=== PATIENT | female | born 1940 | race Two or more races ===

== ENCOUNTER 2021-07-31 14:00 | Outpatient (REF) | payer MEDICARE, MEDICAID, SELFPAY ==
[2021-07-31 14:10] LABS: Appearance Urine CLOUDY; Color Urine YELLOW; Glucose Urine UA NEG (NEG); Leukocyte Esterase Urine 2+ (NEG); Nitrite Urine NEG (NEG); UACC Culture Trigger YES; Urine Blood 2+ (NEG); Urine Ketones NEG (NEG); Urine Protein TRACE MG/DL (NEG-TRACE)
[2021-07-31 14:30] LABS: Bacteria Urine 3+ /LPF; Squamous Epithelial Cell Urine 2+ /LPF; WBC Clumps Urine NOTED
[2021-07-31 14:38] LABS: Creatinine Urine 94.76 mg/dL; Microalbum/Creatinine Ratio Ur 142.4 ug/mg cr
== END 2021-07-31 14:01 | disposition home or self-care (01) ==
LOC: HO.LNP 14:00
PROVIDERS: Visit Provider Internal Medicine
DX: E11.9 Type 2 diabetes mellitus without complications (principal); I10 Essential (primary) hypertension
CPT/HCPCS: 81001; 82043; 87086; 87088; 87186

== ENCOUNTER 2021-08-25 12:25 | Outpatient (REF) | payer MEDICARE, MEDICAID, SELFPAY ==
[2021-08-25 12:43] LABS: Appearance Urine CLOUDY; Color Urine YELLOW; Glucose Urine UA NEG (NEG); Leukocyte Esterase Urine 3+ (NEG); Nitrite Urine POS (NEG); PH 6.5 (5.0-8.0); Specific Gravity - Urine >= 1.030 (1.005-1.025); UACC Culture Trigger YES; Urine Blood NEG (NEG); Urine Ketones NEG (NEG); Urine Protein TRACE MG/DL (NEG-TRACE)
[2021-08-25 13:04] LABS: Bacteria Urine 3+ /LPF; RBC Urine 0-2 /HPF (0); Squamous Epithelial Cell Urine 2+ /LPF
== END 2021-08-25 12:26 | disposition home or self-care (01) ==
LOC: HO.LNP 12:25
PROVIDERS: Visit Provider Internal Medicine
DX: R30.0 Dysuria (principal)
CPT/HCPCS: 81001; 87086

== ENCOUNTER 2022-12-13 02:39 | Emergency (ER) | payer MEDICARE, MEDICAID, SELFPAY ==
[2022-12-13] VITALS (10 sets, daily range): BP systolic 119–166; BP diastolic 65–133; PULSE 96–139; RESP 24–36; TEMP 36.9; O2SAT 74–95; BMI 54.7
--- NOTE | ~2022-12-13 | CT_ITS ---
EXAMINATION: CT ANGIOGRAM OF THE CHEST WITH AND WITHOUT CONTRAST (CT PULMONARY ANGIOGRAM FOR PE) CLINICAL INFORMATION: Reason for Exam SOB and elevated D-dimer. COMPARISON: None available. TECHNIQUE: Prior to contrast administration, noncontrast localization images were obtained. Subsequently, multidetector volumetric imaging was performed from the thoracic inlet to below the diaphragms following the administration of 85 mL Omnipaque 350 intravenous contrast. No contrast reaction reported Sagittal, coronal, and MIP oblique sagittal reformatted images were obtained on the CT workstation, uploaded to PACS, and reviewed. This CT examination was performed using dose optimization techniques as appropriate, variously including the following: *Automated exposure control *Adjustment of mA and/or kV according to patient size (this includes techniques or standardized protocols for targeted exams where dose is matched to indication/reason for exam; i.e. extremities or head) *Use of iterative reconstruction technique Total exam dose-length product 477 mGy-cm FINDINGS: QUALITY OF STUDY/CONTRAST BOLUS: Suboptimal. PULMONARY ARTERIES: Dilated main pulmonary artery suggesting pulmonary artery hypertension. No central pulmonary embolus is seen. However, there is significant respiratory motion artifact which obscures portions of the segmental and subsegmental vessels bilaterally, and therefore emboli at these levels cannot be reliably excluded. THORACIC AORTA: No aneurysm. Scattered atherosclerotic calcifications. LUNG: Limited detailed evaluation due to respiratory motion artifact. There are moderately extensive bilateral regions of groundglass opacity and consolidation, along with some interlobular septal thickening favoring at least a component of edema. PLEURA: No pneumothorax. Small pleural effusions. MEDIASTINUM: The visualized thyroid gland is unremarkable. No discrete mediastinal lymphadenopathy is seen. There is cardiomegaly without pericardial effusion. CORONARY ARTERY CALCIFICATION: Present CHEST WALL/AXILLA: No axillary or internal mammary lymphadenopathy. OSSEOUS STRUCTURES: Degenerative changes are noted in the spine. UPPER ABDOMEN: Mild reflux of contrast into the hepatic veins which can be seen with elevated right heart pressures. CT/CT angio chest PE protocol IMPRESSION: 1. No central pulmonary embolus identified. However, there is significant respiratory motion artifact which obscures portions of the segmental and subsegmental vessels bilaterally, and therefore emboli at these levels cannot be reliably excluded. 2. Dilated main pulmonary artery suggesting pulmonary artery hypertension. 3. Moderately extensive bilateral pulmonary opacities favoring at least a component of edema. In the proper clinical setting, superimposed infectious etiology could also be considered. 4. Small pleural effusions. 5. Cardiomegaly. VTE: negative.
--- NOTE | 2022-12-13 03:06 | ECG_ITS ---
Test Reason : sob Blood Pressure : / mmHG Vent. Rate : 123 BPM Atrial Rate : 110 BPM P-R Int : 000 ms QRS Dur : 162 ms QT Int : 384 ms P-R-T Axes : 000 -47 131 degrees QTc Int : 549 ms Poor data quality Undetermined rhythm - likely Afib Left axis deviation Left bundle branch block Abnormal ECG When compared with ECG of 08-SEP-2007 03:12, Current undetermined rhythm precludes rhythm comparison, needs review Left bundle branch block is now Present Referred By: Generic ED Physician Electronically Signed By:Reynaldo Rodriguez
--- NOTE | 2022-12-13 03:15 | ED.SOB ---
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 PMH is significant for hypothyroidism, anxiety, hypertension, dementia, depression, GERD, DM type 2. Related Data Home Medications Medication Instructions Recorded Confirmed acetaminophen 325 mg tablet 650 mg PO Q6-8H PRN pain 06/17/20 10/20/20 cyanocobalamin (vitamin B-12) mcg IM 06/17/20 10/20/20 1,000 mcg/mL injection solution quetiapine 25 mg tablet 25 mg PO BEDTIME 06/17/20 10/20/20 amlodipine 10 mg tablet 10 mg PO DAILY 12/13/22 12/13/22 aspirin 81 mg tablet,delayed 81 mg PO DAILY 12/13/22 12/13/22 release cholecalciferol (vitamin D3) 25 25 mcg PO DAILY 12/13/22 12/13/22 mcg (1,000 unit) tablet cyanocobalamin (vitamin B-12) 1,000 mcg PO DAILY 12/13/22 12/13/22 1,000 mcg tablet (Vitamin B-12) ferrous sulfate 325 mg (65 mg 325 mg PO DAILY 12/13/22 12/13/22 iron) tablet (FeroSul) fluoxetine 40 mg capsule 40 mg PO DAILY 12/13/22 12/13/22 hydrochlorothiazide 25 mg tablet 25 mg PO QAM 12/13/22 12/13/22 levothyroxine 100 mcg tablet 100 mcg PO QAM 12/13/22 12/13/22 lisinopril 40 mg tablet 40 mg PO DAILY 12/13/22 12/13/22 lorazepam 1 mg tablet 1 mg PO BID PRN anxiety 12/13/22 12/13/22 omeprazole 20 mg capsule,delayed 20 mg PO DAILY 12/13/22 12/13/22 release simvastatin 20 mg tablet 20 mg PO BEDTIME 12/13/22 12/13/22 tramadol 50 mg tablet 50 mg PO TID PRN pain 12/13/22 12/13/22 Previous Rx's Medication Instructions Recorded miscellaneous medical supply See Rx Instructions miscellaneous 04/23/20 .COMPLEX #1 ea miscellaneous medical supply 1 ea miscellaneous .COMPLEX #1 ea 09/18/20 zinc oxide-white petrolatum 1 appl topical TID 30 days #71 09/18/20 topical ointment grams MANUAL WHEELCHAIR #1 ea 11/12/20 MOTORIZED SCOOTER #1 ea 11/21/20 miscellaneous medical supply 1 ea miscellaneous .COMPLEX #1 ea 03/26/21 metformin 500 mg tablet 500 mg PO BID #180 tabs 11/10/21 aspirin 81 mg tablet,delayed 81 mg PO DAILY 90 days #90 tabs 01/18/22 release cholecalciferol (vitamin D3) 25 25 mcg PO DAILY 90 days #90 tabs 01/18/22 mcg (1,000 unit) tablet (Vitamin D3) ferrous sulfate 325 mg (65 mg 325 mg PO DAILY 90 days #90 tabs 01/18/22 iron) tablet levothyroxine 100 mcg tablet 100 mcg PO QAM 90 days #90 tabs 01/18/22 miscellaneous medical supply 5 ea miscellaneous .COMPLEX 30 08/02/22 days #150 ea miscellaneous medical supply See Rx Instructions miscellaneous 08/02/22 .COMPLEX #1 ea miscellaneous medical supply See Rx Instructions miscellaneous 08/02/22 .COMPLEX #1 ea miscellaneous medical supply See Rx Instructions miscellaneous 08/02/22 .COMPLEX #150 ea XL gloves #3 ea 08/09/22 bed pads #2 ea 08/09/22 personal wipes #3 ea 08/09/22 cyanocobalamin (vitamin B-12) 1,000 mcg PO DAILY #30 tabs 10/06/22 1,000 mcg tablet lisinopril 40 mg tablet 40 mg PO DAILY 90 days #90 tabs 10/06/22 fluoxetine 40 mg capsule 40 mg PO DAILY 90 days #90 caps 10/11/22 omeprazole 20 mg capsule,delayed 20 mg PO DAILY #90 caps 10/31/22 release amlodipine 10 mg tablet 10 mg PO DAILY #90 tabs 11/05/22 hydrochlorothiazide 25 mg tablet 25 mg PO QAM #90 tabs 11/05/22 simvastatin 20 mg tablet 20 mg PO BEDTIME #90 tabs 11/10/22 lorazepam 1 mg tablet 1 mg PO BID PRN anxiety 30 days 11/17/22 #60 tabs tramadol 50 mg tablet 50 mg PO TID PRN pain 30 days #90 12/07/22 tabs Allergies Allergy/AdvReac Type Severity Reaction Status Date / Time No Known Allergies Allergy Verified 12/29/21 11:13 [No Known Allergies*] Review of Systems Review of Systems: All other systems are reviewed and are negative Constitutional: Reports as per HPI and Reports no additional constitutional complaints Eyes: Reports as per HPI and Reports no additional eye complaints Reports system reviewed and no additional complaints, except as documented Cardiovascular: Reports as per HPI and Reports no additional cardiovascular complaints Respiratory: Reports as per HPI and Reports no additional respiratory complaints Gastrointestinal: Reports as per HPI and Reports no additional gastrointestinal complaints Genitourinary: Reports no additional female genitourinary complaints Musculoskeletal: Reports no additional musculoskeletal complaints Skin/Breast: Reports system reviewed and no additional complaints, except as docu Psychiatric: Reports no additional psychiatric complaints Endocrine: Reports no additional endocrine complaints Hematologic/Lymphatic: Reports no additional hematologic/lymphatic complaints Allergic/Immunologic: Reports no additional allergic/immunologic complaints Reports system reviewed and no additional complaints, except as documented and Reports Abnormal speech present FORMERLY [facility], [facility]–1983 Past Medical History Medical History Acquired hypothyroidism Anxiety Benign essential hypertension Dementia Depression GERD without esophagitis Iron deficiency anemia Obesity (BMI 30-39.9) Osteoarthritis Pure hypercholesterolemia Type 2 diabetes mellitus without complications Urinary incontinence Vitamin B12 deficiency Vitamin D deficiency Surgical History No pertinent past surgical history Family History Family History Father No problems noted. Mother No problems noted. Social History Social History Housing: House Alcohol intake: never Patient Tobacco Use Status: Former Tobacco user Years Smoked: quit at 39 year old per grand child. Smoked in Last 30 Days: Yes Advance Directives: No Advance Directives Information Provided: No Current occupational status: disabled Cognitive needs: Yes Hearing needs: Yes Vision needs: No Physical Exam Vital Signs: Vital Signs: Last Vital Signs Pulse 105 H 12/13/22 05:27 Resp 30 H 12/13/22 07:06 BP 119/65 12/13/22 05:27 Pulse Ox 93 12/13/22 05:27 O2 Del Method BiPAP 12/13/22 05:27 O2 Flow Rate 4 12/13/22 02:55 Oxygen Flow Rate 4 12/13/22 03:28 BMI result Body Mass Index 54.7 Vital signs have been reviewed as appeared to be correct. Blood pressure normal. Heart rate elevated . Respiration rate normal. Temperature normal. Oxygen saturation low. Appearance: Diaphoretic, in acute respiratory distress. Head: Normal external exam. Normocephalic. Atraumatic. No Camacho signs noted. No raccoon eyes noted Eyes: PERRLA. EOMI. Conjunctiva and sclera normal. Eyelids normal. ENT: TM's Normal. Pharynx normal. Uvula midline. Moist mucous membranes. No trismus noted. No drooling noted. No muffled voice noted. Neck: Normal inspection. Neck supple. FROM. No adenopathy. Thyroid Normal. No meningeal signs. No neck mass noted. CVS: Normal heart rate and rhythm. Heart sound normal. No murmurs noted. Pulses normal throughout. Respiratory: No respiratory distress. Painless inspiration. Breath sounds normal. No wheezes/rales/rhonchi noted. Chest nontender. No accessory muscle usage noted or decreased air movement noted. Abdomen: Soft and nontender. Bowel sounds normal in all 4 quadrants. No distention noted. No organomegaly noted. No visible injury noted. Back: No CVA tenderness. Full range of motion noted. Skin: Skin warm and dry. Normal skin color. Normal skin turgor. No rashes/lesions/lacerations noted. Extremities: No lower extremity edema. Extremities exhibit normal range of motion. Extremities nontender. Neuro: Cranial nerve exam: II-XII are grossly intact No motor deficit. No sensory deficit. Reflexes normal. Course Course Course Narrative: 7:34 82-year-old female came in for right leg pain patient found to be in congestive heart failure, patient received Lasix and nitro and patient was placed on BiPAP with significant improvement while in the emergency department, we will wean off the BiPAP machine and admit to the floor. Lactic acidosis due to congestive heart failure, no evidence of severe infection or septic shock. The plan was discussed with Clara. Reevaluation(s) Time: 07:34 Medications Administered Discontinued Medications Generic Name Dose Route Start Last Admin Trade Name Freq PRN Reason Stop Dose Admin Furosemide 40 mg 12/13/22 03:13 12/13/22 03:24 Furosemide 40 Mg/4 Ml Vial IVPUSH 12/13/22 03:14 40 mg STAT STA Administration Protocol Furosemide 40 mg 12/13/22 05:53 12/13/22 05:57 Furosemide 40 Mg/4 Ml Vial IVPUSH 12/13/22 05:54 40 mg STAT STA Administration Protocol Iohexol 85 ml 12/13/22 04:27 12/13/22 04:28 Iohexol 350 Mg/Ml 100 Ml Infus..Btl IV 12/13/22 04:28 85 ml ONCE ONE Administration Nitroglycerin 1 inch 12/13/22 03:13 12/13/22 03:24 Nitroglycerin 2 % Oint 1 Gm Packet TRANSDERMA 12/13/22 03:14 1 inch ONCE ONE Administration Medical Decision Making Differential Diagnosis Differential Diagnoses: The differential diagnosis associated with the presentation includes (CHF, pneumonia, pneumothorax, pulmonary embolism, severe electrolyte abnormalities, severe anemia.) Admission/Observation Consideration of admission/observation: Escalation of care including admission/observation considered Consult Healthcare Provider Management of the patient was discussed with: Hospitalist (Dr. Gutierrez) Lab Data MDM Lab Attestation statement: I reviewed the patient's lab results. 12/13/22 03:12 12/13/22 03:12 Labs: Lab Results 12/13/22 12/13/22 12/13/22 Range/Units 03:12 03:12 03:12 WBC 12.4 H (4.8-10.8) X10*3/uL RBC 4.49 (4.20-5.50) X10*6/uL Hgb 12.5 (12.0-16.0) g/dl Hct 40.7 (37.0-47.0) % MCV 90.6 (80.0-98.0) fL MCH 27.8 (27.0-33.0) pg MCHC 30.7 L (31.0-35.0) g/dl RDW 13.2 (11.0-16.0) % Plt Count 344 (160-400) X10*3/uL MPV 9.6 (9.4-12.3) fL Immature Gran % (Auto) 1.3 H (0.0-0.4) % Neut % (Auto) 77.5 H (45-73) % Lymph % (Auto) 17.4 L (20-40) % [place] % (Auto) 3.4 (2-11) % Eos % (Auto) 0.2 (0-4) % Baso % (Auto) 0.2 (0-2) % Lymph # (Auto) 2.2 (1.2-4.9) X10*3/uL [place] # (Auto) 0.4 (0.1-1.2) X10*3/uL Eos # (Auto) 0.0 (0.0-0.4) X10*3/uL Baso # (Auto) 0.0 (0.0-0.2) X10*3/uL Abs Immat Gran (auto) 0.16 H (0.00-0.03) X10*3/uL Absolute Neuts (auto) 9.6 H (2.0-8.3) x10*3/uL Absolute Nucleated RBC 0.000 (0.0-0.012) X10*3/uL Nucleated RBC % (auto) 0.0 (0.0-0.2) /100WBC D-Dimer High Sensitivty NG/ML VBG pH (7.32-7.43) VBG pCO2 mmHg VBG pO2 mmHg VBG HCO3 (22-26) mmol/L VBG O2 Saturation % VBG Base Excess mmol/L Sodium 141 (135-145) mmol/L Potassium 3.5 (3.3-5.1) mmol/L Chloride 101 (96-108) mmol/L Carbon Dioxide 17 L (22-29) mmol/L Anion Gap 27 H (12-20) BUN 15 (9-16) mg/dL Creatinine 0.97 (0.5-1.4) mg/dL Estim Creat Clear Calc 56.0 Estimated GFR 55 Random Glucose 356 H* (60-115) mg/dL Lactic Acid (0.5-2.0) mmol/L Lactic Acid F/U @ 2Hr (0.5-2.0) mmol/L Calcium 8.7 (8.4-10.2) mg/dL Total Bilirubin 1.0 (0.0-1.0) mg/dL Direct Bilirubin 0.3 (0.0-0.5) mg/dL AST 18 (5-31) U/L ALT 20 (0-31) U/L Alkaline Phosphatase 51 (39-117) U/L Troponin I High Sens 44.9 H (<3.5-17.0) ng/L B-Natriuretic Peptide (<100) pg/mL Total Protein 8.3 H (6.5-8.0) g/dL Albumin 3.9 (3.5-5.0) g/dL Lipase 24 (8-78) U/L 12/13/22 12/13/22 12/13/22 Range/Units 03:12 03:12 03:18 WBC (4.8-10.8) X10*3/uL RBC (4.20-5.50) X10*6/uL Hgb (12.0-16.0) g/dl Hct (37.0-47.0) % MCV (80.0-98.0) fL MCH (27.0-33.0) pg MCHC (31.0-35.0) g/dl RDW (11.0-16.0) % Plt Count (160-400) X10*3/uL MPV (9.4-12.3) fL Immature Gran % (Auto) (0.0-0.4) % Neut % (Auto) (45-73) % Lymph % (Auto) (20-40) % [place]re % (Auto) (2-11) % Eos % (Auto) (0-4) % Baso % (Auto) (0-2) % Lymph # (Auto) (1.2-4.9) X10*3/uL [place] # (Auto) (0.1-1.2) X10*3/uL Eos # (Auto) (0.0-0.4) X10*3/uL Baso # (Auto) (0.0-0.2) X10*3/uL Abs Immat Gran (auto) (0.00-0.03) X10*3/uL Absolute Neuts (auto) (2.0-8.3) x10*3/uL Absolute Nucleated RBC (0.0-0.012) X10*3/uL Nucleated RBC % (auto) (0.0-0.2) /100WBC D-Dimer High Sensitivty 1042 NG/ML VBG pH (7.32-7.43) VBG pCO2 mmHg VBG pO2 mmHg VBG HCO3 (22-26) mmol/L VBG O2 Saturation % VBG Base Excess mmol/L Sodium (135-145) mmol/L Potassium (3.3-5.1) mmol/L Chloride (96-108) mmol/L Carbon Dioxide (22-29) mmol/L Anion Gap (12-20) BUN (9-16) mg/dL Creatinine (0.5-1.4) mg/dL Estim Creat Clear Calc Estimated GFR Random Glucose (60-115) mg/dL Lactic Acid 12.2 H* (0.5-2.0) mmol/L Lactic Acid F/U @ 2Hr (0.5-2.0) mmol/L Calcium (8.4-10.2) mg/dL Total Bilirubin (0.0-1.0) mg/dL Direct Bilirubin (0.0-0.5) mg/dL AST (5-31) U/L ALT (0-31) U/L Alkaline Phosphatase (39-117) U/L Troponin I High Sens (<3.5-17.0) ng/L B-Natriuretic Peptide 500 H (<100) pg/mL Total Protein (6.5-8.0) g/dL Albumin (3.5-5.0) g/dL Lipase (8-78) U/L 12/13/22 12/13/22 Range/Units 03:23 05:59 WBC (4.8-10.8) X10*3/uL RBC (4.20-5.50) X10*6/uL Hgb (12.0-16.0) g/dl Hct (37.0-47.0) % MCV (80.0-98.0) fL MCH (27.0-33.0) pg MCHC (31.0-35.0) g/dl RDW (11.0-16.0) % Plt Count (160-400) X10*3/uL MPV (9.4-12.3) fL Immature Gran % (Auto) (0.0-0.4) % Neut % (Auto) (45-73) % Lymph % (Auto) (20-40) % [place] % (Auto) (2-11) % Eos % (Auto) (0-4) % Baso % (Auto) (0-2) % Lymph # (Auto) (1.2-4.9) X10*3/uL [place] # (Auto) (0.1-1.2) X10*3/uL Eos # (Auto) (0.0-0.4) X10*3/uL Baso # (Auto) (0.0-0.2) X10*3/uL Abs Immat Gran (auto) (0.00-0.03) X10*3/uL Absolute Neuts (auto) (2.0-8.3) x10*3/uL Absolute Nucleated RBC (0.0-0.012) X10*3/uL Nucleated RBC % (auto) (0.0-0.2) /100WBC D-Dimer High Sensitivty NG/ML VBG pH 7.26 L (7.32-7.43) VBG pCO2 33 mmHg VBG pO2 53 mmHg VBG HCO3 15 L (22-26) mmol/L VBG O2 Saturation 76.0 % VBG Base Excess -10.2 mmol/L Sodium (135-145) mmol/L Potassium (3.3-5.1) mmol/L Chloride (96-108) mmol/L Carbon Dioxide (22-29) mmol/L Anion Gap (12-20) BUN (9-16) mg/dL Creatinine (0.5-1.4) mg/dL Estim Creat Clear Calc Estimated GFR Random Glucose (60-115) mg/dL Lactic Acid (0.5-2.0) mmol/L Lactic Acid F/U @ 2Hr 10.5 H* (0.5-2.0) mmol/L Calcium (8.4-10.2) mg/dL Total Bilirubin (0.0-1.0) mg/dL Direct Bilirubin (0.0-0.5) mg/dL AST (5-31) U/L ALT (0-31) U/L Alkaline Phosphatase (39-117) U/L Troponin I High Sens (<3.5-17.0) ng/L B-Natriuretic Peptide (<100) pg/mL Total Protein (6.5-8.0) g/dL Albumin (3.5-5.0) g/dL Lipase (8-78) U/L Independent Interpretation I performed an independent interpretation of an: CT Scan (CTA of the chest: No acute intrathoracic pathology.) Radiology Impression Discussion of test interpretation with radiology: I have reviewed the radiologist's reading. Discharge Plan Discharge Clinical Impression: Congestive heart failure Patient Disposition: Admitted As Inpatient
[2022-12-13 03:18] LABS: MANUAL DIFF FLAG NO
[2022-12-13 03:19] LABS: Basophils Percent Auto 0.2 % (0-2); Eosinophils Percent Auto 0.2 % (0-4); Hematocrit 40.7 % (37.0-47.0); Hemoglobin 12.5 g/dl (12.0-16.0); Imm Gran Abs Auto 0.16 X10*3/uL (0.00-0.03); Imm Gran Pct Auto 1.3 % (0.0-0.4); Lymphocytes Absolute Auto 2.2 X10*3/uL (1.2-4.9); Lymphocytes Percent Auto 17.4 % (20-40); Mean Corpuscular HGB Conc 30.7 g/dl (31.0-35.0); Mean Corpuscular Hemoglobin 27.8 pg (27.0-33.0); Mean Corpuscular Volume 90.6 fL (80.0-98.0); Mean Platelet Volume 9.6 fL (9.4-12.3); Monocytes Absolute Auto 0.4 X10*3/uL (0.1-1.2); Monocytes Percent Auto 3.4 % (2-11); Neutrophils Absolute Auto 9.6 x10*3/uL (2.0-8.3); Neutrophils Percent Auto 77.5 % (45-73); Platelet Count 344 X10*3/uL (160-400); Red Blood Count 4.49 X10*6/uL (4.20-5.50); Red Cell Distribution Width 13.2 % (11.0-16.0); White Blood Count 12.4 X10*3/uL (4.8-10.8)
[2022-12-13] MEDS: Furosemide 40 MG/4 ML VIAL IVPUSH ×2 (03:24→05:57)
[2022-12-13] MEDS: Nitroglycerin 2 % Oint 1 GM Packet 1 INCH TRANSDERMA (03:24)
[2022-12-13 03:26] LABS: D Dimer High Sensitivity 1042 NG/ML
[2022-12-13 03:35] LABS: VBG Base Excess -10.2 mmol/L; VBG HCO3 15 mmol/L (22-26); VBG pCO2 33 mmHg; VBG pH 7.26 (7.32-7.43); VBG pO2 53 mmHg
[2022-12-13 03:37] LABS: Venous Blood Gas Refer to POC result
[2022-12-13 03:39] LABS: Alanine Aminotransferase 20 U/L (0-31); Albumin Level 3.9 g/dL (3.5-5.0); Alkaline Phosphatase 51 U/L (39-117); Anion Gap 27 (12-20); Aspartate Amino Transferase 18 U/L (5-31); Bilirubin Direct 0.3 mg/dL (0.0-0.5); Blood Urea Nitrogen 15 mg/dL (9-16); Calcium 8.7 mg/dL (8.4-10.2); Carbon Dioxide 17 mmol/L (22-29); Chloride 101 mmol/L (96-108); Estimated Glomerular Filt Rate 55; Glucose Random 356 mg/dL (60-115); Lipase 24 U/L (8-78); Potassium 3.5 mmol/L (3.3-5.1); Sodium 141 mmol/L (135-145); Total Protein 8.3 g/dL (6.5-8.0)
[2022-12-13 03:41] LABS: Lactic Acid 12.2 mmol/L (0.5-2.0)
[2022-12-13 03:41] LABS: Troponin-I High Sensitivity 44.9 ng/L (<3.5-17.0)
[2022-12-13] MEDS: iohexoL 350 MG/ML 100 ML INFUS..BTL 85 ML IV (04:28)
[2022-12-13 05:23] LABS: Reflex Lactate? Lactic Acid Added
[2022-12-13 05:47] LABS: B Type Natriuretic Peptide 500 pg/mL (<100)
[2022-12-13 06:36] LABS: ~Lactic Acid-LAB USE ONLY 10.5 mmol/L (0.5-2.0)
--- NOTE | 2022-12-13 08:00 | MHC.EDTECH ---
Patient had AM care ,bed change new purewick on and reposition . patient relaxing in bed.
[2022-12-13 08:04] LABS: Reflex Lactate? 2 Y
--- NOTE | 2022-12-13 08:44 | PC.NURSE ---
pt linen changed/changed into hospital attire. rectal temp obtained, repeat blood work obtained. pt remains on bipap, family at bedside
[2022-12-13 08:50] LABS: Venous Blood Gas Refer to POC result
[2022-12-13 08:53] LABS: VBG Base Excess 2.4 mmol/L; VBG HCO3 27 mmol/L (22-26); VBG pCO2 45 mmHg; VBG pH 7.39 (7.32-7.43); VBG pO2 40 mmHg
[2022-12-13 09:15] LABS: ~Lactic Acid-LAB USE ONLY 7.8 mmol/L (0.5-2.0)
--- NOTE | 2022-12-13 09:41 | PC.NURSE ---
respiratory at bedside attempting to wean pt off of bipap
[2022-12-13] MEDS: Acetaminophen 325 MG TABLET 975 MG PO (09:51)
[2022-12-13] MEDS: Furosemide 100 MG/10 ML VIAL 80 MG IVPUSH (12:07)
--- NOTE | 2022-12-13 12:10 | PHA.MEDREC ---
Pharmacy Consult ? Medication Reconciliation Pharmacy has completed the medication reconciliation. spoke with patient's family and gave me the patients HSE ADVISOR contact info (who I believe is also a family member) Regis, . He was able to confirm all of her medications and reports the patient taking them yesterday.
[2022-12-13 12:17] LABS: COVID-19 Test Negative (Negative); IDNOW Serial# 08D9AD1C
[2022-12-13] MEDS: Morphine Sulfate 2 MG/ML CARTRIDGE IVPUSH (13:12)
--- NOTE | 2022-12-13 13:20 | PC.NURSE ---
attempted to call [facility] emergency dept for report, no answer
== END 2022-12-13 16:00 | disposition short-term general hospital (02) ==
PROVIDERS: Emergency Medicine; Emergency Provider Emergency Medicine
DX: I11.0 Hypertensive heart disease with heart failure (principal); I50.9 Heart failure, unspecified; E87.20 Acidosis, unspecified; R06.00 Dyspnea, unspecified; M79.605 Pain in left leg; M79.604 Pain in right leg; Z20.822 Contact with and (suspected) exposure to COVID-19; E11.9 Type 2 diabetes mellitus without complications; E78.00 Pure hypercholesterolemia, unspecified; Z87.891 Personal history of nicotine dependence; Z79.02 Long term (current) use of antithrombotics/antiplatelets; Z79.82 Long term (current) use of aspirin; Z79.899 Other long term (current) drug therapy
CPT/HCPCS: 36415; 71275; 80048; 80076; 82803; 83605; 83690; 83880; 84484; 85025; 85379; 87040; 87635; 93005; 96374; 96375; 96376; 99285; J1940; J2270; Q9967

== ENCOUNTER 2023-01-20 10:15 | Outpatient (AMB) | payer MEDICARE, MEDICAID, SELFPAY ==
--- NOTE | 2023-01-20 10:17 | MHC.PC.OV ---
Intake Visit Reasons: Wound on [phone] Allergies No Known Allergies [No Known Allergies*] Allergy (Verified 01/20/23 10:35) Medication List - Last Reconciled 01/20/23 by Chidi Leonard PA-C acetaminophen 650 mg PO Q6-8H PRN amlodipine 10 mg PO DAILY aspirin 81 mg PO DAILY [bed pads As directed] cholecalciferol (vitamin D3) 25 mcg PO DAILY [COMMODE As directed] cyanocobalamin (vitamin B-12) (Vitamin B-12) 1,000 mcg PO DAILY ferrous sulfate (FeroSul) 325 mg PO DAILY fluoxetine 40 mg PO DAILY furosemide 40 mg PO QAM 30 days hydrochlorothiazide 25 mg PO QAM levothyroxine 100 mcg PO QAM lisinopril 40 mg PO DAILY lorazepam 1 mg PO BID PRN 30 days [MANUAL WHEELCHAIR As directed] [MOTORIZED SCOOTER As directed] omeprazole 20 mg PO DAILY [personal wipes As directed] simvastatin 20 mg PO BEDTIME tramadol 50 mg PO TID PRN [XL gloves As directed] zinc oxide-white petrolatum 1 appl topical TID PRN Tobacco use date assessed: 12/29/21 HPI Wound on [phone] HPI Details Patient is an 82-year-old female being evaluated today via telephone speaking with family member. Did not have access to video conference. Family reports a wound on her left leg. Patient is homebound and has severe dementia, peripheral vascular disease, type 2 diabetes, hyperlipidemia, hypertension and depression. Currently living with her [id number]-bur in [facility]. Daughter reports her left lower extremity has developed a wound and has been very itchy according to patient. They have been using topical treatments and bandages. Reports the wound has been getting better though would like evaluation. Apparently patient recently admitted to the hospital and was offered left lower extremity amputation though patient declined. [facility] Medical History Acquired hypothyroidism Anxiety Benign essential hypertension Dementia Depression GERD without esophagitis Iron deficiency anemia Obesity (BMI 30-39.9) Osteoarthritis Pure hypercholesterolemia Type 2 diabetes mellitus without complications Urinary incontinence Vitamin B12 deficiency Vitamin D deficiency Surgical History No pertinent past surgical history Family History Father No problems noted. Mother No problems noted. Social History Housing: House Alcohol intake: never Patient Tobacco Use Status: Former Tobacco user Years Smoked: quit at 39 year old per grand child. Current occupational status: disabled Cognitive needs: Yes Hearing needs: Yes Vision needs: No Questionnaire Thrive Questionnaire Date Thrive assessed: 12/29/21 LAYO-7 AMB Questionnaire LAYO-7 Date LAYO - 7 assessed: 12/29/21 Source: Developed by Drs. Philip Blum, Laura Meyer, Vaibhav Ballard and colleagues, with an educational lonny from [employer]. Review of Systems Const Denies headache(s) Eyes Denies loss of vision ENT Denies vertigo, Denies dizziness, Denies headache(s) and Denies sore throat Card Denies chest pain, Denies leg edema and Denies lightheadedness Resp Denies cough, Denies hemoptysis and Denies wheezing GI Denies abdominal pain, Denies melena, Denies constipation, Denies diarrhea and Denies vomiting Denies urinary frequency, Denies dysuria and Denies urinary urgency Musc Details: Left lower extremity wound Denies arthralgias, Denies joint swelling, Denies numbness and Denies tingling Neuro Denies behavioral changes, Denies vertigo, Denies dizziness, Denies headache(s), Denies loss of vision, Denies memory loss, Denies numbness and Denies tingling Psych Denies anxiety, Denies behavioral changes, Denies depression, Denies memory loss and Denies panic attacks Jack/Lymph Denies easy bleeding and Denies easy bruising Aller/Immun Denies wheezing Physical exam (Primary Care) Tobacco/Smoking Status: Tobacco use Status Tobacco use date assessed 12/29/21 01/20/23 10:17 Patient Tobacco Use Status Former Tobacco user 01/20/23 10:17 Thrive Assessment: Date of Thrive Assessment Date Thrive assessed 12/29/21 01/20/23 10:17 Telehealth Telehealth Location of provider rendering services: practice address Location of patient: address on file Patient Identification confirmed using: Name, : Yes Telehealth method: voice only Patient verbally consented to treatment: Yes Patient verbally consented to billing insurance company: Yes Patient informed of any privacy concerns related to visit: Yes Minutes spent on Phone/Video with Pt.: 11 Assessment and Plan Assessment & Plan (1) Wound of left lower extremity: Code(s): S81.802A - Unspecified open wound, left lower leg, initial encounter Qualifiers: Encounter type: sequela Qualified Code(s): S81.802S - Unspecified open wound, left lower leg, sequela Plan: Unable to get video conference today, [id number] reports history of left lower extremity wound that has recently worsened due to scratching. Has been using topical treatments that have been helping according to [id number]. Patient is diabetic and has peripheral vascular disease along with core morbid moderate to severe dementia and is home bound. Living and [place] with family and would like VNA services for evaluation of wound and wound care. Will empirically treat with antibiotic due to patient's comorbidities Orders: [facility]errals [facility] Referral S81.802S - Unspecified open wound, left lower leg, sequela Medications: New amoxicillin-pot clavulanate 875-125 mg 1 tab PO BID 7 days 14 tabs 0RF S81.802S - Unspecified open wound, left lower leg, sequela walker As directed 1 ea 0RF F03.90 - Unspecified dementia, unspecified severity, without behavioral disturbance, psychotic disturbance, mood disturbance, and anxiety, I73.9 - Peripheral vascular disease, unspecified Discontinued zinc oxide-white petrolatum 1 appl topical TID 30 days 71 grams 11RF K21.9 - Gastro-esophageal reflux disease without esophagitis, R32 - Unspecified urinary incontinence Coding Level of Care Code Tele Est Pt Level 3 (54883) Diagnoses Wound of left lower extremity S81.802S Encounter type: sequela
== END 2023-01-20 11:43 | disposition home or self-care (01) ==
LOC: HO.HMGH 10:16
PROVIDERS: PCP Internal Medicine; Visit Provider Physician Assistant
DX: S81.802S Unspecified open wound, left lower leg, sequela (principal)
CPT/HCPCS: 99442

== ENCOUNTER 2023-02-21 14:14 | Outpatient (AMB) | payer MEDICARE, MEDICAID, SELFPAY ==
--- NOTE | 2023-02-21 14:21 | MHC.PC.OV ---
Vital Signs 02/21/23 14:25 BP 114/66 Blood Pressure Location Lt brachial Position Sitting Pulse 75 Pulse Source Pulse Oximeter Pulse Oximetry (%) 96 Oxygen Delivery Method Room Air Intake Visit Reasons: open wound on thigh Allergies No Known Allergies [No Known Allergies*] Allergy (Verified 02/21/23 15:22) Medication List - Last Reconciled 02/21/23 by Chidi Leonard PA-C acetaminophen 650 mg (2 x 325 mg) PO Q6-8H PRN amlodipine 10 mg PO DAILY apixaban (Eliquis) 5 mg PO BID 30 days aspirin 81 mg PO DAILY atorvastatin 20 mg PO DAILY 30 days [bed pads As directed] cholecalciferol (vitamin D3) 25 mcg PO DAILY [COMMODE As directed] cyanocobalamin (vitamin B-12) (Vitamin B-12) 1,000 mcg PO DAILY ferrous sulfate (FeroSul) 325 mg PO DAILY fluoxetine 40 mg PO DAILY furosemide 40 mg PO QAM 30 days hydrochlorothiazide 25 mg PO QAM levothyroxine 100 mcg PO QAM lisinopril 40 mg PO DAILY lorazepam 1 mg PO BID PRN 30 days [MANUAL WHEELCHAIR As directed] metoprolol succinate ER 25 mg PO DAILY [MOTORIZED SCOOTER As directed] omeprazole 20 mg PO DAILY PRN 90 days [personal wipes As directed] spironolactone (Aldactone) 25 mg PO DAILY walker As directed [XL gloves As directed] zinc oxide-white petrolatum 1 appl topical TID PRN Tobacco use date assessed: 02/21/23 HPI open wound on thigh HPI Details Patient is an 83-year-old female here today for a follow-up on her wound. She presents today with her zclwenik-aa-uyf and son. Patient is Maldivian-speaking only thus most of the history comes from daughter low in son. ? Family reports a wound on her left leg that has been evident over the last several months. They have been doing their own home wound care. They report patient has been complaining this can ulcer being very itchy. Has already finished full course of Augmentin. ? Patient is homebound and has severe dementia, peripheral vascular disease, type 2 diabetes, hyperlipidemia, hypertension and depression. Currently living with her [id number] in [facility]. Daughter reports her left lower extremity has developed a wound and has been very itchy according to patient.? They have been using topical treatments and bandages.? Reports the wound has been getting better though would like evaluation. We did discuss the possible need for [facility] operations specialist evaluation and possible debridement to promote healing. Patient is not willing at this time and advised to strongly consider. [facility] Medical History Acquired hypothyroidism Anxiety Benign essential hypertension Dementia Depression GERD without esophagitis Iron deficiency anemia Obesity (BMI 30-39.9) Osteoarthritis Pure hypercholesterolemia Type 2 diabetes mellitus without complications Urinary incontinence Vitamin B12 deficiency Vitamin D deficiency Surgical History No pertinent past surgical history Family History Father No problems noted. Mother No problems noted. Social History Housing: House Alcohol intake: never Patient Tobacco Use Status: Former Tobacco user Years Smoked: quit at 39 year old per grand child. Current occupational status: disabled Cognitive needs: Yes Hearing needs: Yes Vision needs: No Questionnaire PHQ-9 Over the last 2 weeks, how often have you been bothered by any of the following problems? 1. Little interest or pleasure in doing things: not at all 2. Feeling down, depressed, or hopeless: not at all 3. Trouble falling or staying asleep, or sleeping too much: not at all 4. Feeling tired or having little energy: not at all 5. Poor appetite or overeating: not at all 6. Feeling bad about yourself - or that you are a failure or have let yourself or your family down: not at all 7. Trouble concentrating on things, such as reading the newspaper or watching television: not at all 8. Moving or speaking so slowly that other people could have noticed. Or the opposite - being so fidgety or restless that you have been moving around a lot more than usual: not at all 9. Thoughts that you would be better off or of hurting yourself in some way: not at all Total score: 0 Depression Screening Interpretation: Negative Source: Developed by Drs. Philip Blum, Laura B.W. Vaibhav Meyer and colleagues, with an educational lonny from [employer]. Thrive Questionnaire Date Thrive assessed: 02/21/23 I am a: Patient What is your living situation today?: I have a steady place to live Within the past 12 months, did the food you bought not last and you didn't have the money to get more?: Never true Within the past 12 months, did you worry whether your food would run out before you got money to buy more?: Never true Do you have trouble paying for medicines?: No Do you have trouble getting transportation to medical appointments?: No Do you have trouble paying your heating and electricity bill?: No Do you have trouble taking care of your child, family member or friend?: No Do you have trouble with day-to-day activities such as bathing, preparing meals, shopping, managing finances, etc.?: No Are you currently unemployed and looking for a job?: No Are you interested in more education?: No AUDIT C Alcohol Use Questionnaire (AUDIT-C) 1. How often do you have a drink containing alcohol?: Never 3. How often do you have six or more drinks on one occasion?: Never Total Score: 0 LAYO-7 AMB Questionnaire LAYO-7 Date LAYO - 7 assessed: 02/21/23 Feeling nervous, anxious, or on edge: 0 = Not at all Not being able to stop or control worryin = Not at all Worrying too much about different things: 0 = Not at all Trouble relaxin = Not at all Being so restless that it is hard to sit still: 0 = Not at all Becoming easily annoyed or irritable: 0 = Not at all Feeling afraid as if something awful might happen: 0 = Not at all Total LAYO-7 score (0-4 normal; 5-9 mild; 10-14 moderate; 15-21 severe): 0 Source: Developed by Drs. Philip Blum, Vaibhav Blue and colleagues, with an educational lonny from [employer]. Review of Systems Const Denies headache(s) Eyes Denies loss of vision ENT Denies vertigo, Denies dizziness, Denies headache(s) and Denies sore throat Card Denies chest pain, Denies leg edema and Denies lightheadedness Resp Denies cough, Denies hemoptysis and Denies wheezing GI Denies abdominal pain, Denies melena, Denies constipation, Denies diarrhea and Denies vomiting Denies urinary frequency, Denies dysuria and Denies urinary urgency Musc Denies arthralgias, Denies joint swelling, Denies numbness and Denies tingling Neuro Denies Abnormal speech present, Denies behavioral changes, Denies vertigo, Denies dizziness, Denies headache(s), Denies loss of vision, Denies memory loss, Denies numbness and Denies tingling Psych Denies anxiety, Denies behavioral changes, Denies depression, Denies memory loss and Denies panic attacks Ajck/Lymph Denies easy bleeding and Denies easy bruising Aller/Immun Denies wheezing Physical exam (Primary Care) Vital Signs: Last Vital Signs Pulse 75 02/21/23 14:25 BP 114/66 02/21/23 14:25 Pulse Ox 96 02/21/23 14:25 Oxygen Delivery Method Room Air 02/21/23 14:25 Tobacco/Smoking Status: Tobacco use Status Tobacco use date assessed 02/21/23 02/21/23 14:34 Patient Tobacco Use Status Former Tobacco user 02/21/23 14:22 PHQ-9: PHQ-9 Score PHQ-9: Total score 0 02/21/23 15:24 Depression Screening Interpretation: Negative Thrive Assessment: Date of Thrive Assessment Date Thrive assessed 02/21/23 02/21/23 14:34 Const General: healthy appearing, no acute distress, alert and awake Nutritional Appearance: well nourished Orientation/consciousness: oriented to person, oriented to place and oriented to time HENWV Ears: TM's normal bilaterally General nose exam: Normal nasal mucous membranes and turbinates present Eyes Conjunctivae: conjunctivae normal Sclerae: sclerae normal Pupils: Equal, round and reactive pupils present Neck Neck: Yes no lymphadenopathy and Yes no JVD Thyroid: Thyroid normal Carotids: no bruits Resp Effort & Inspection: normal respiratory effort and not tachypneic Auscultation: no crackles, no rales, no rhonchi and no wheezes Cardio Rate: regular rate Rhythm: regular rhythm Heart sounds: no murmurs and normal S1 and S2 GI Palpation (GI): Soft to palpation, nontender, no hepatomegaly and no splenomegaly Auscultation: normal bowel sounds Skin General skin exam: no rashes or lesions noted and dry skin Neuro General: oriented to person, oriented to place and oriented to time Cranial nerves: Yes Equal, round and reactive pupils present Speech: No Abnormal speech present Gait exam (Neuro): Normal gait present Motor exam (neuro): no tremor noted Extrem Right upper extremity: full ROM Left upper extremity: full ROM Right lower extremity: full ROM; no edema Left lower extremity: full ROM; no edema Knee images: 1. 8 CM X 8 CM LARGE DRIED ULCERATION WITH SURROUNDING NECROTIC TISSUE. NO SURROUNDING ERYTHEMA OR ACTIVE DRAINAGE FROM THE ULCER AT THIS TIME Psych Mental Status: mental status grossly normal Speech and movement: Normal speech and movement present Affect: normal affect Attitude: cooperative Thought process: Normal thought process present Results AMB Hemoglobin A1c AMB Hemoglobin A1c 5.9 % Last Edit by Marita Vásquez MA on 02/21/23 14:36 Results Reviewed Results Reviewed: Laboratory Last Values Hgb A1c (Clinic) 5.9 % (4.0-6.0) 02/21/23 14:36 Assessment and Plan Assessment & Plan (1) PVD (peripheral vascular disease): Code(s): I73.9 - Peripheral vascular disease, unspecified Plan: Apparently and most recent hospitalization she was found to severe vascular disease in lower extremities. (2) Wound of left lower extremity: Code(s): S81.802A - Unspecified open wound, left lower leg, initial encounter Qualifiers: Encounter type: sequela Qualified Code(s): S81.802S - Unspecified open wound, left lower leg, sequela Plan: Patient has a chronic ulcer over her upper left thigh that has been evident over last several months. Has been doing their own wound care at home. Patient now living and was to with her [id number]-aez. Advised on seeing billing collections specialist for surgical debridement to promote healing though patient is declining at this time. Advised family to look in to [facility] wound care which will likely be the closest facility. Until then no antibiotics seem to be needed for this ulcer. Will supply with topical steroid for the itch. Of note patient has son does take time off work to help take care of Ary as she is wheelchair and bedbound and has moderate to severe dementia with multiple medical comorbidities. Patient does need help at home with activities of daily living. Filled out [facility] paperwork for patient's son. Orders: Orders AMB Hemoglobin A1c 02/21/23 E11.9 - Type 2 diabetes mellitus without complications Medications: New hydrocortisone 1% 1 appl topical BID 15 days 454 grams 0RF skin irritation S81.802S - Unspecified open wound, left lower leg, sequela Changed From aspirin 81 mg PO DAILY 30 tabs 0RF E78.00 - Pure hypercholesterolemia, unspecified To aspirin 81 mg PO DAILY 90 days 90 tabs 1RF E78.00 - Pure hypercholesterolemia, unspecified Refilled omeprazole 20 mg PO DAILY 90 days PRN 90 caps 1RF heartburn [bed pads] As directed 2 ea 11RF R32 - Unspecified urinary incontinence [personal wipes] As directed 3 ea 11RF R32 - Unspecified urinary incontinence [XL gloves] As directed 3 ea 11RF R32 - Unspecified urinary incontinence Discontinued zinc oxide-white petrolatum 1 appl topical TID 30 days 71 grams 11RF K21.9 - Gastro-esophageal reflux disease without esophagitis, R32 - Unspecified urinary incontinence Coding Level of Care Code Est Pt Level 4 (09087) Est Pt Prev Care 40-64y(96321) Diagnoses PVD (peripheral vascular disease) I73.9 Wound of left lower extremity S81.802S Encounter type: sequela
[2023-02-21 14:25] VITALS: BP 114/66; PULSE 75; O2SAT 96
== END 2023-02-21 15:46 | disposition home or self-care (01) ==
PROVIDERS: PCP Internal Medicine; Visit Provider Physician Assistant
DX: I73.9 Peripheral vascular disease, unspecified (principal); S81.802D Unspecified open wound, left lower leg, subsequent encounter
CPT/HCPCS: 83036; 99214